=== PATIENT | male | born 1955 ===

== ENCOUNTER 2021-03-20 18:36 | Inpatient (IN) | payer BC, SELFPAY ==
[~2021-03-20 18:36] MED LIST: Iopamidol-370 76% 500 ML 1 ML ONE
[2021-03-20 19:47] LABS: #Basophils 0.1 thou/uL (0.0-0.2); #Lymphocytes 1.1 thou/uL (1.20-3.40); #Monocytes 0.5 thou/uL (0.11-0.59); #Neutrophils 5.3 thou/uL (1.40-6.50); %Basophils 0.9 % (0.0-1.0); %Eosinophils 0.3 % (0.0-10.0); %Lymphocytes 15.8 % (21.0-51.0); %Monocytes 6.5 % (0.0-10.0); %Neutrophils 76.5 % (42.0-75.0); Hemoglobin 15.5 g/dL (14.0-18.0); Mean Corpuscular HGB CONC 34.9 g/dL (32.0-36.0); Mean Corpuscular Hemoglobin 32.1 pg (27.0-31.0); Mean Corpuscular Volume 92.1 fL (78.0-98.0); Platelet Count 199 thou/uL (130-400); RBC Distribution Width 11.1 % (11.5-14.5); Red Blood Cell (RBC) Count 4.82 mill/uL (4.70-6.10); White Blood Cell (WBC) Count 6.9 thou/uL (4.8-10.8)
[2021-03-20 20:07] LABS: ALT (SGPT) 47 U/L (8-55); AST (SGOT) 64 U/L (5-34); Albumin 3.3 g/dL (3.4-4.8); Alkaline Phosphatase 76 U/L (40-110); Anion Gap 15 mmol/L (10-20); BUN (Urea Nitrogen) 31 mg/dL (8.4-25.7); Bilirubin, Total 0.6 mg/dL (0.2-1.2); Calc. Creatinine Clearance 0 mL/min (70-130); Calcium 8.6 mg/dL (7.8-10.44); Carbon Dioxide 27 mmol/L (23-31); Chloride 98 mmol/L (98-107); Glucose 102 mg/dL (80-115); Potassium 3.7 mmol/L (3.5-5.1); Protein, Total 6.3 g/dL (5.8-8.1); Sodium 136 mmol/L (136-145)
[2021-03-20] MEDS ORDERED: Dexamethasone 10 MG/ML VIAL ONE (20:10)
[2021-03-20 21:06] LABS: SARS-CoV-2 NAA Rapid Test DETECTED (NotDetected)
[2021-03-20 23:23] VITALS: BMI 34.0
[2021-03-21] MEDS ORDERED: Acetaminophen 325 MG TAB PO PRN (09:09)
[2021-03-21] MEDS ORDERED: Dexamethasone 10 MG in Sodium Chloride 0.9% 50 ML IVPB SCH (09:15)
[2021-03-21] MEDS ORDERED: Enoxaparin Sodium 40 MG/0.4 ML SYRINGE SC SCH (09:15)
[2021-03-21] MEDS ORDERED: Lisinopril 10 MG TAB PO SCH (09:15)
[2021-03-21] MEDS ORDERED: Dexamethasone 10 MG/ML VIAL SLOW IVP SCH (09:30)
[2021-03-22 04:44] LABS: #Lymphocytes 1.1 thou/uL (1.20-3.40); #Monocytes 0.9 thou/uL (0.11-0.59); #Neutrophils 9.4 thou/uL (1.40-6.50); %Basophils 0.1 % (0.0-1.0); %Eosinophils 0.1 % (0.0-10.0); %Lymphocytes 9.8 % (21.0-51.0); %Monocytes 7.6 % (0.0-10.0); %Neutrophils 82.4 % (42.0-75.0); Hemoglobin 13.9 g/dL (14.0-18.0); Mean Corpuscular HGB CONC 35.1 g/dL (32.0-36.0); Mean Corpuscular Hemoglobin 32.4 pg (27.0-31.0); Mean Corpuscular Volume 92.3 fL (78.0-98.0); Mean Platelet Volume 7.8 fL (7.4-10.4); Platelet Count 232 thou/uL (130-400); Red Blood Cell (RBC) Count 4.29 mill/uL (4.70-6.10); White Blood Cell (WBC) Count 11.4 thou/uL (4.8-10.8)
[2021-03-22 05:06] LABS: ALT (SGPT) 50 U/L (8-55); AST (SGOT) 44 U/L (5-34); Albumin 2.7 g/dL (3.4-4.8); Alkaline Phosphatase 63 U/L (40-110); Anion Gap 14 mmol/L (10-20); BUN (Urea Nitrogen) 29 mg/dL (8.4-25.7); Bilirubin, Total 0.5 mg/dL (0.2-1.2); Calc. Creatinine Clearance 77 mL/min (70-130); Calcium 8.5 mg/dL (7.8-10.44); Carbon Dioxide 27 mmol/L (23-31); Chloride 106 mmol/L (98-107); Globulin 2.7 g/dL (2.4-3.5); Glucose 132 mg/dL (80-115); Potassium 4.5 mmol/L (3.5-5.1); Protein, Total 5.4 g/dL (5.8-8.1); Sodium 142 mmol/L (136-145)
[2021-03-22] MEDS: Thiamine 100 MG TAB PO SCH (08:26)
[2021-03-22] MEDS: Lisinopril 20 MG TAB PO SCH (08:27)
[2021-03-22] MEDS: Dexamethasone 4 MG TAB PO SCH (08:29)
[2021-03-22] MEDS: Cholecalciferol (Vitamin D3) 400 UNITS TAB PO SCH (08:29)
[2021-03-22] MEDS: Chlorthalidone 25 MG TAB PO SCH (08:29)
[2021-03-22] MEDS: Ascorbic Acid 500 mg Chewable Tablet PO SCH (08:29)
[2021-03-22] MEDS: Zinc Sulfate 220 MG CAP PO SCH (08:30)
[2021-03-22] MEDS ORDERED: Lisinopril 10 MG TAB PO SCH (09:00)
[2021-03-22] MEDS ORDERED: Enoxaparin Sodium 40 MG/0.4 ML SYRINGE SC SCH (09:00)
[2021-03-23 08:06] LABS: Anion Gap 16 mmol/L (10-20); BUN (Urea Nitrogen) 33 mg/dL (8.4-25.7); Calc. Creatinine Clearance 78 mL/min (70-130); Calcium 8.4 mg/dL (7.8-10.44); Carbon Dioxide 24 mmol/L (23-31); Chloride 105 mmol/L (98-107); Glucose 98 mg/dL (80-115); Potassium 3.9 mmol/L (3.5-5.1); Sodium 141 mmol/L (136-145)
[2021-03-23] MEDS: Cholecalciferol (Vitamin D3) 400 UNITS TAB PO SCH (08:21)
[2021-03-23] MEDS: Ascorbic Acid 500 mg Chewable Tablet PO SCH (08:21)
[2021-03-23] MEDS: Dexamethasone 4 MG TAB PO SCH (08:22)
[2021-03-23] MEDS: Thiamine 100 MG TAB PO SCH (08:23)
[2021-03-23] MEDS: Enoxaparin Sodium 40 MG/0.4 ML SYRINGE SC SCH ×2 (08:23→20:27)
[2021-03-23] MEDS: Zinc Sulfate 220 MG CAP PO SCH (08:23)
[2021-03-23] MEDS: Chlorthalidone 25 MG TAB PO SCH (08:23)
[2021-03-23] MEDS: Lisinopril 20 MG TAB PO SCH (08:24)
[2021-03-23 08:48] LABS: Band 1 % (5-11); Hemoglobin 13.6 g/dL (14.0-18.0); Lymphocytes 7 % (21-51); MDiff Complete? YES; Mean Corpuscular HGB CONC 34.1 g/dL (32.0-36.0); Mean Corpuscular Hemoglobin 31.4 pg (27.0-31.0); Mean Corpuscular Volume 91.9 fL (78.0-98.0); Monocytes 6 % (0-10); Myelocyte 2 % (0-0); Neutrophil 83 % (42-75); Platelet Count 278 thou/uL (130-400); Platelet Morphology Comment Appears Adequate; RBC Morphology Normal; Reactive Lymphocytes 1 % (0-10); Red Blood Cell (RBC) Count 4.35 mill/uL (4.70-6.10); White Blood Cell (WBC) Count 14.8 thou/uL (4.8-10.8)
[2021-03-23] MEDS ORDERED: BARICITINIB 2 MG TAB PO SCH (10:00)
[2021-03-24] MEDS: Ascorbic Acid 500 mg Chewable Tablet PO SCH (08:31)
[2021-03-24] MEDS: BARICITINIB 2 MG TAB PO SCH (08:31)
[2021-03-24] MEDS: Cholecalciferol (Vitamin D3) 400 UNITS TAB PO SCH (08:31)
[2021-03-24] MEDS: Enoxaparin Sodium 40 MG/0.4 ML SYRINGE SC SCH ×2 (08:31→21:18)
[2021-03-24] MEDS: Lisinopril 20 MG TAB PO SCH (08:32)
[2021-03-24] MEDS: Thiamine 100 MG TAB PO SCH (08:32)
[2021-03-24] MEDS: Chlorthalidone 25 MG TAB PO SCH (08:32)
[2021-03-24] MEDS: Zinc Sulfate 220 MG CAP PO SCH (08:32)
[2021-03-24] MEDS: Dexamethasone 4 MG TAB PO SCH (08:33)
[2021-03-24] MEDS ORDERED: Dexamethasone 10 MG in Sodium Chloride 0.9% 50 ML IVPB SCH (09:00)
[2021-03-24] MEDS: Dexamethasone 10 MG/ML VIAL SLOW IVP SCH ×2 (09:10→21:18)
[2021-03-24 16:24] LABS: #Monocytes 0.7 thou/uL (0.11-0.59); #Neutrophils 10.2 thou/uL (1.40-6.50); %Basophils 0.1 % (0.0-1.0); %Eosinophils 0.3 % (0.0-10.0); %Lymphocytes 8.4 % (21.0-51.0); %Monocytes 5.6 % (0.0-10.0); %Neutrophils 85.6 % (42.0-75.0); Hemoglobin 14.2 g/dL (14.0-18.0); Mean Corpuscular HGB CONC 33.9 g/dL (32.0-36.0); Mean Corpuscular Volume 91.3 fL (78.0-98.0); Mean Platelet Volume 7.7 fL (7.4-10.4); Platelet Count 282 thou/uL (130-400); Red Blood Cell (RBC) Count 4.58 mill/uL (4.70-6.10); White Blood Cell (WBC) Count 11.9 thou/uL (4.8-10.8)
[2021-03-25 05:37] LABS: #Basophils 0.1 thou/uL (0.0-0.2); #Eosinphils 0.1 thou/uL (0.0-0.7); #Monocytes 0.4 thou/uL (0.11-0.59); #Neutrophils 9.1 thou/uL (1.40-6.50); %Basophils 0.5 % (0.0-1.0); %Eosinophils 0.5 % (0.0-10.0); %Monocytes 3.9 % (0.0-10.0); %Neutrophils 86.2 % (42.0-75.0); Hemoglobin 14.1 g/dL (14.0-18.0); Mean Corpuscular HGB CONC 32.9 g/dL (32.0-36.0); Mean Corpuscular Hemoglobin 30.1 pg (27.0-31.0); Mean Corpuscular Volume 91.4 fL (78.0-98.0); Mean Platelet Volume 8.1 fL (7.4-10.4); Platelet Count 284 thou/uL (130-400); Red Blood Cell (RBC) Count 4.68 mill/uL (4.70-6.10); White Blood Cell (WBC) Count 10.6 thou/uL (4.8-10.8)
[2021-03-25 08:03] LABS: Anion Gap 17 mmol/L (10-20); BUN (Urea Nitrogen) 35 mg/dL (8.4-25.7); Calc. Creatinine Clearance 84 mL/min (70-130); Calcium 8.4 mg/dL (7.8-10.44); Carbon Dioxide 25 mmol/L (23-31); Chloride 101 mmol/L (98-107); Glucose 147 mg/dL (80-115); Magnesium 2.2 mg/dL (1.6-2.6); Phosphorus 4.5 mg/dL (2.3-4.7); Potassium 4.7 mmol/L (3.5-5.1); Sodium 138 mmol/L (136-145)
[2021-03-25] MEDS: BARICITINIB 2 MG TAB PO SCH (08:58)
[2021-03-25] MEDS: Zinc Sulfate 220 MG CAP PO SCH (08:58)
[2021-03-25] MEDS: Chlorthalidone 25 MG TAB PO SCH (08:58)
[2021-03-25] MEDS: Cholecalciferol (Vitamin D3) 400 UNITS TAB PO SCH (08:58)
[2021-03-25] MEDS: Ascorbic Acid 500 mg Chewable Tablet PO SCH (08:59)
[2021-03-25] MEDS: Lisinopril 20 MG TAB PO SCH (08:59)
[2021-03-25] MEDS: Thiamine 100 MG TAB PO SCH (08:59)
[2021-03-25] MEDS: Enoxaparin Sodium 40 MG/0.4 ML SYRINGE SC SCH ×2 (08:59→20:25)
[2021-03-25] MEDS: Dexamethasone 10 MG/ML VIAL SLOW IVP SCH ×2 (09:00→20:25)
[2021-03-26 06:22] LABS: Hemoglobin 14.7 g/dL (14.0-18.0); Lymphocytes 9 % (21-51); MDiff Complete? YES; Mean Corpuscular HGB CONC 33.7 g/dL (32.0-36.0); Mean Corpuscular Hemoglobin 30.6 pg (27.0-31.0); Mean Platelet Volume 8.7 fL (7.4-10.4); Monocytes 23 % (0-10); Neutrophil 68 % (42-75); Platelet Count 362 thou/uL (130-400); Platelet Morphology Comment Appears Adequate; RBC Distribution Width 11.1 % (11.5-14.5); RBC Morphology Normal; White Blood Cell (WBC) Count 15.9 thou/uL (4.8-10.8)
[2021-03-26] MEDS: Ascorbic Acid 500 mg Chewable Tablet PO SCH (09:27)
[2021-03-26] MEDS: Chlorthalidone 25 MG TAB PO SCH (09:28)
[2021-03-26] MEDS: BARICITINIB 2 MG TAB PO SCH (09:28)
[2021-03-26] MEDS: Zinc Sulfate 220 MG CAP PO SCH (09:28)
[2021-03-26] MEDS: Lisinopril 20 MG TAB PO SCH (09:28)
[2021-03-26] MEDS: Cholecalciferol (Vitamin D3) 400 UNITS TAB PO SCH (09:28)
[2021-03-26] MEDS: Enoxaparin Sodium 40 MG/0.4 ML SYRINGE SC SCH ×2 (09:28→20:28)
[2021-03-26] MEDS: Thiamine 100 MG TAB PO SCH (09:28)
[2021-03-26] MEDS: Dexamethasone 10 MG/ML VIAL SLOW IVP SCH ×2 (09:29→20:28)
[2021-03-27 08:43] LABS: Hemoglobin 14.7 g/dL (14.0-18.0); Mean Corpuscular HGB CONC 33.3 g/dL (32.0-36.0); Mean Corpuscular Hemoglobin 30.2 pg (27.0-31.0); Mean Corpuscular Volume 90.6 fL (78.0-98.0); Mean Platelet Volume 8.5 fL (7.4-10.4); Platelet Count 388 thou/uL (130-400); RBC Distribution Width 11.1 % (11.5-14.5); Red Blood Cell (RBC) Count 4.88 mill/uL (4.70-6.10); White Blood Cell (WBC) Count 14.1 thou/uL (4.8-10.8)
[2021-03-27 09:06] LABS: Anion Gap 14 mmol/L (10-20); BUN (Urea Nitrogen) 55 mg/dL (8.4-25.7); Calc. Creatinine Clearance 73 mL/min (70-130); Calcium 8.7 mg/dL (7.8-10.44); Carbon Dioxide 23 mmol/L (23-31); Chloride 103 mmol/L (98-107); Glucose 106 mg/dL (80-115); Potassium 4.6 mmol/L (3.5-5.1); Sodium 135 mmol/L (136-145)
[2021-03-27 09:09] LABS: Band 2 % (5-11); Lymphocytes 13 % (21-51); MDiff Complete? YES; Metamyelocyte 1 % (0-0); Monocytes 5 % (0-10); Myelocyte 2 % (0-0); Neutrophil 77 % (42-75)
[2021-03-27] MEDS: Cholecalciferol (Vitamin D3) 400 UNITS TAB PO SCH (09:27)
[2021-03-27] MEDS: Ascorbic Acid 500 mg Chewable Tablet PO SCH (09:27)
[2021-03-27] MEDS: Chlorthalidone 25 MG TAB PO SCH (09:27)
[2021-03-27] MEDS: BARICITINIB 2 MG TAB PO SCH (09:28)
[2021-03-27] MEDS: Thiamine 100 MG TAB PO SCH (09:28)
[2021-03-27] MEDS: Zinc Sulfate 220 MG CAP PO SCH (09:28)
[2021-03-27] MEDS: Lisinopril 20 MG TAB PO SCH (09:28)
[2021-03-27] MEDS: Enoxaparin Sodium 40 MG/0.4 ML SYRINGE SC SCH (09:28)
[2021-03-27] MEDS: Dexamethasone 10 MG/ML VIAL SLOW IVP SCH ×2 (09:29→21:14)
[2021-03-27] MEDS ORDERED: Enoxaparin Sodium 30 MG/0.3 ML SYRINGE SC SCH (11:00)
[2021-03-27] MEDS: Enoxaparin Sodium 60 MG/0.6 ML SYRINGE SC SCH (21:14)
[2021-03-28 06:08] LABS: #Lymphocytes 0.9 thou/uL (1.20-3.40); #Monocytes 0.7 thou/uL (0.11-0.59); %Basophils 0.3 % (0.0-1.0); %Eosinophils 0.4 % (0.0-10.0); %Monocytes 6.1 % (0.0-10.0); %Neutrophils 85.2 % (42.0-75.0); Hemoglobin 14.6 g/dL (14.0-18.0); Mean Corpuscular Hemoglobin 30.2 pg (27.0-31.0); Mean Corpuscular Volume 91.5 fL (78.0-98.0); Mean Platelet Volume 8.6 fL (7.4-10.4); Platelet Count 406 thou/uL (130-400); RBC Distribution Width 11.2 % (11.5-14.5); Red Blood Cell (RBC) Count 4.84 mill/uL (4.70-6.10); White Blood Cell (WBC) Count 11.8 thou/uL (4.8-10.8)
[2021-03-28] MEDS: Dexamethasone 4 mg/ml Vial SLOW IVP SCH (10:34)
[2021-03-28] MEDS: BARICITINIB 2 MG TAB PO SCH (10:34)
[2021-03-28] MEDS: Ascorbic Acid 500 mg Chewable Tablet PO SCH (10:34)
[2021-03-28] MEDS: Cholecalciferol (Vitamin D3) 400 UNITS TAB PO SCH (10:34)
[2021-03-28] MEDS: Enoxaparin Sodium 60 MG/0.6 ML SYRINGE SC SCH ×2 (10:35→20:14)
[2021-03-28] MEDS: Thiamine 100 MG TAB PO SCH (10:35)
[2021-03-28] MEDS: Zinc Sulfate 220 MG CAP PO SCH (10:35)
[2021-03-28] MEDS: Lisinopril 20 MG TAB PO SCH (10:35)
[2021-03-28] MEDS: Chlorthalidone 25 MG TAB PO SCH (10:40)
[2021-03-29 05:41] LABS: #Lymphocytes 1.5 thou/uL (1.20-3.40); #Monocytes 1.3 thou/uL (0.11-0.59); #Neutrophils 10.8 thou/uL (1.40-6.50); %Basophils 0.2 % (0.0-1.0); %Eosinophils 0.2 % (0.0-10.0); %Monocytes 9.3 % (0.0-10.0); %Neutrophils 79.3 % (42.0-75.0); Hemoglobin 16.6 g/dL (14.0-18.0); Mean Corpuscular HGB CONC 32.4 g/dL (32.0-36.0); Mean Corpuscular Hemoglobin 29.9 pg (27.0-31.0); Mean Corpuscular Volume 92.4 fL (78.0-98.0); Mean Platelet Volume 8.8 fL (7.4-10.4); Platelet Count 418 thou/uL (130-400); RBC Distribution Width 11.4 % (11.5-14.5); Red Blood Cell (RBC) Count 5.57 mill/uL (4.70-6.10); White Blood Cell (WBC) Count 13.6 thou/uL (4.8-10.8)
[2021-03-29 06:09] LABS: ALT (SGPT) 59 U/L (8-55); AST (SGOT) 20 U/L (5-34); Alkaline Phosphatase 65 U/L (40-110); Bilirubin, Direct 0.3 mg/dL (0.1-0.3); Bilirubin, Total 0.5 mg/dL (0.2-1.2); Protein, Total 6.4 g/dL (5.8-8.1)
[2021-03-29] MEDS: Thiamine 100 MG TAB PO SCH (09:22)
[2021-03-29] MEDS: BARICITINIB 2 MG TAB PO SCH (09:23)
[2021-03-29] MEDS: Chlorthalidone 25 MG TAB PO SCH (09:23)
[2021-03-29] MEDS: Ascorbic Acid 500 mg Chewable Tablet PO SCH (09:23)
[2021-03-29] MEDS: Zinc Sulfate 220 MG CAP PO SCH (09:24)
[2021-03-29] MEDS: Enoxaparin Sodium 60 MG/0.6 ML SYRINGE SC SCH ×2 (09:24→21:37)
[2021-03-29] MEDS: Dexamethasone 4 mg/ml Vial SLOW IVP SCH (09:24)
[2021-03-29] MEDS: Cholecalciferol (Vitamin D3) 400 UNITS TAB PO SCH (09:24)
[2021-03-29] MEDS: Lisinopril 20 MG TAB PO SCH (09:25)
[2021-03-29] MEDS ORDERED: Magnesium Citrate 300 ML BOT PO SCH (10:30)
[2021-03-30] MEDS: Lisinopril 20 MG TAB PO SCH (09:30)
[2021-03-30] MEDS: Zinc Sulfate 220 MG CAP PO SCH (09:30)
[2021-03-30] MEDS: Ascorbic Acid 500 mg Chewable Tablet PO SCH (09:30)
[2021-03-30] MEDS: Cholecalciferol (Vitamin D3) 400 UNITS TAB PO SCH (09:30)
[2021-03-30] MEDS: Thiamine 100 MG TAB PO SCH (09:30)
[2021-03-30] MEDS: Chlorthalidone 25 MG TAB PO SCH (09:30)
[2021-03-30] MEDS: Dexamethasone 4 mg/ml Vial SLOW IVP SCH (09:30)
[2021-03-30] MEDS: Enoxaparin Sodium 60 MG/0.6 ML SYRINGE SC SCH ×2 (09:30→19:42)
[2021-03-30] MEDS: BARICITINIB 2 MG TAB PO SCH (09:30)
[2021-03-31] MEDS: Chlorthalidone 25 MG TAB PO SCH (09:57)
[2021-03-31] MEDS: Zinc Sulfate 220 MG CAP PO SCH (09:57)
[2021-03-31] MEDS: Dexamethasone 4 mg/ml Vial SLOW IVP SCH (09:57)
[2021-03-31] MEDS: BARICITINIB 2 MG TAB PO SCH (09:57)
[2021-03-31] MEDS: Thiamine 100 MG TAB PO SCH (09:57)
[2021-03-31] MEDS: Ascorbic Acid 500 mg Chewable Tablet PO SCH (09:57)
[2021-03-31] MEDS: Cholecalciferol (Vitamin D3) 400 UNITS TAB PO SCH (09:58)
[2021-03-31] MEDS: Enoxaparin Sodium 60 MG/0.6 ML SYRINGE SC SCH ×2 (09:58→23:16)
[2021-03-31] MEDS: Lisinopril 20 MG TAB PO SCH (10:32)
[2021-04-01 05:54] LABS: ALT (SGPT) 96 U/L (8-55); AST (SGOT) 39 U/L (5-34); Albumin 2.6 g/dL (3.4-4.8); Alkaline Phosphatase 59 U/L (40-110); Bilirubin, Direct 0.3 mg/dL (0.1-0.3); Bilirubin, Total 0.6 mg/dL (0.2-1.2); Protein, Total 5.2 g/dL (5.8-8.1)
[2021-04-01] MEDS: BARICITINIB 2 MG TAB PO SCH (09:21)
[2021-04-01] MEDS: Ascorbic Acid 500 mg Chewable Tablet PO SCH (09:21)
[2021-04-01] MEDS: Zinc Sulfate 220 MG CAP PO SCH (09:21)
[2021-04-01] MEDS: Thiamine 100 MG TAB PO SCH (09:21)
[2021-04-01] MEDS: Cholecalciferol (Vitamin D3) 400 UNITS TAB PO SCH (09:22)
[2021-04-01] MEDS: Enoxaparin Sodium 60 MG/0.6 ML SYRINGE SC SCH (09:22)
[2021-04-01] MEDS: Lisinopril 20 MG TAB PO SCH (09:22)
[2021-04-01] MEDS: Dexamethasone 4 mg/ml Vial SLOW IVP SCH (09:22)
[2021-04-01] MEDS: Chlorthalidone 25 MG TAB PO SCH (09:23)
[2021-04-01 09:50] LABS: Anion Gap 11 mmol/L (10-20); BUN (Urea Nitrogen) 43 mg/dL (8.4-25.7); Calc. Creatinine Clearance 76 mL/min (70-130); Calcium 8.3 mg/dL (7.8-10.44); Carbon Dioxide 27 mmol/L (23-31); Chloride 99 mmol/L (98-107); Glucose 151 mg/dL (80-115); Potassium 3.9 mmol/L (3.5-5.1); Sodium 133 mmol/L (136-145)
[2021-04-01 12:02] VITALS: BP 108/68; TEMP 97.5
== END 2021-04-01 17:23 | disposition home or self-care (01) | DRG 177 ==
LOC: ERS 18:36 → 2SE 21:44 → OBSVTOIN 03-21 11:39
PROVIDERS: ADMIT Student in an Organized Health Care Education/Training Program; ATTEND Internal Medicine
PROC: 8E0ZXY6 Isolation (ICD-10-PCS; principal; 2021-03-21)
PROC: 3E0333Z Introduction of Anti-inflammatory into Peripheral Vein, Percutaneous Approach (ICD-10-PCS; 2021-03-21)
DX: U07.1 COVID-19 (principal); J96.01 Acute respiratory failure with hypoxia; J12.82 Pneumonia due to coronavirus disease 2019; I10 Essential (primary) hypertension; E66.9 Obesity, unspecified; R00.1 Bradycardia, unspecified; Z79.891 Long term (current) use of opiate analgesic; Z79.899 Other long term (current) drug therapy; Z90.49 Acquired absence of other specified parts of digestive tract; Z80.0 Family history of malignant neoplasm of digestive organs; Z84.0 Family history of diseases of the skin and subcutaneous tissue; Z68.34 Body mass index [BMI] 34.0-34.9, adult
CPT/HCPCS: 36415; 36416; 71045; 71275; 80048; 80053; 80076; 83735; 84100; 84484; 85025; 85379; 85652; 86140; 93005; 93010; 93306; 96372; 96374; 96376; G0378; J1100; J1650; J8540; Q9967; U0002